=== PATIENT | female | born 1960 | race Two or more races ===

== ENCOUNTER → 2020-03-29 | Emergency (ER) | payer MEDICAID, OTHER ==
[~2020-03-29] VITALS: Ht 157.5 cm; Wt 81.2 kg
[2020-03-29 19:40] VITALS: BP 130/70
== END | disposition home or self-care (01) ==
LOC: ER 15:41
DX: J06.9 Acute upper respiratory infection, unspecified (principal)
CPT/HCPCS: 87070; 87880